=== PATIENT | male | born 1945 | race Caucasian/White ===

== ENCOUNTER → 2016-12-13 | Outpatient (CLI) | payer BC ==
--- NOTE | 2016-12-13 10:56 | DIAGNOSTIC IMAGING REPORT ---
ULTRASOUND KIDNEYS AND BLADDER CLINICAL HISTORY: Left flank pain. COMPARISON STUDY: Abdominal CT dated 05/20/2008. Abdominal MRI dated 09/09/2015. TECHNIQUE: Real-time, grayscale, and color flow sonography of the kidneys and bladder is performed. Images are reviewed in the transverse and longitudinal planes. FINDINGS: Kidneys: The kidneys are normal in size and echotexture. There is contour irregularity along the upper pole the right kidney. A heterogeneous and slightly echogenic nonvascular structure arising from the right upper pole measures approximately 5 cm. The right kidney measures 9.3 x 4.6 x 4.4 cm and the left kidney measures 10.7 x 4.9 x 4.3 cm. There is no hydronephrosis. No shadowing renal calculi are identified. No perinephric fluid is identified. Bladder: The prostate gland is enlarged and heterogeneous, and contains coarse calcifications. The bladder is normal in appearance. Bilateral ureteral jets were seen. IMPRESSION: 1. There is no hydronephrosis. No acute abnormality is seen. 2. Irregularity of the right upper pole with a heterogeneous 5 cm exophytic structure likely represents posttreatment change. This was better characterized on the 09/09/2015 abdominal MRI. 3. Prostatomegaly. The bladder is normal as imaged. Electronically signed by: Miquel Friedman M.D. 12/13/2016 10:53 AM Dictated Date/Time: 12/13/2016 10:49 AM
== END | disposition home or self-care (01) ==
LOC: C.ULTRBC 09:45
PROVIDERS: ATTEND Physician Assistant
DX: R10.9 Unspecified abdominal pain (principal)

== ENCOUNTER → 2017-12-26 | Outpatient (CLI) | payer OTHER ==
--- NOTE | 2017-12-26 13:06 | DIAGNOSTIC IMAGING REPORT ---
CHEST 2 VIEWS ROUTINE CLINICAL HISTORY: J06.9 UPPER RESPIRATORY INFECTION COMPARISON STUDY: 06/20/2016 FINDINGS: There is pulmonary emphysema. The heart is the upper limits of normal in size. There is no failure. There is no focal pulmonary consolidation. There are no pleural effusions.[ IMPRESSION: Emphysema. No acute findings. Electronically signed by: Hi George M.D. 12/26/2017 1:04 PM Dictated Date/Time: 12/26/2017 1:04 PM
== END | disposition home or self-care (01) ==
LOC: C.RAD1850 12:04
PROVIDERS: ATTEND Internal Medicine
DX: J06.9 Acute upper respiratory infection, unspecified (principal); J43.9 Emphysema, unspecified